=== PATIENT | female | born 1935 | race Caucasian/White ===

== ENCOUNTER 2017-06-26 22:35 | Inpatient (IN) | payer MEDICARE ==
[~2017-06-26] VITALS: Ht 167.6 cm; Wt 60.4 kg
[2017-06-26 22:45] VITALS: BP 124/74; PULSE 73; RESP 16; TEMP 98.5; O2SAT 98
--- NOTE | 2017-06-26 23:09 | PD ---
HPI . Facial trauma Chief Complaint: Fall Time Seen by Provider: 23:01 Travel History International Travel<30 days: No Contact w/Intl Traveler<30days: No Traveled to known affect area: No History of Present Illness HPI Patient was transferred to us from [facility] for left facial fractures. She was accepted in transfer by Dr. Pulido. She reports very little pain at this time. [facility] Past Medical History Medical History: Denies Significant Hx Tetanus Vaccination: < 5 Years Past Surgical History Eye Surgery: Yes Hysterectomy: Yes Social History Alcohol Use: Yes Tobacco Use: No Substance Use: No Allergies-Medications (Allergen,Severity, Reaction): Coded Allergies: No Known Allergies (Unverified , 06/26/17) Review of Systems Except as stated in HPI: all other systems reviewed are Neg HENT: Positive: Other (left facial trauma) Physical Exam Narrative GENERAL: Awake and alert and in no acute distress. SKIN: Warm and dry. She has a couple of her repaired lacerations on the left side of her face. HEAD:. Bruising and swelling to the left cheek EYES: Pupils are equal. Extraocular movements are intact. ENT: Teeth occlude normally. NECK: Normal range of motion. Nontender. CARDIOVASCULAR: Regular rate and rhythm. RESPIRATORY: Nonlabored respirations. MUSCULOSKELETAL: Atraumatic. NEUROLOGICAL: Nonfocal. A and O 3. No cranial nerve deficits noted. Moving all 4 extremities equally. PSYCHIATRIC: Appropriate mood and affect. Data Data Last Documented VS Vital Signs Date Time Temp Pulse Resp B/P (MAP) Pulse Ox O2 Delivery O2 Flow Rate FiO2 06/26/17 22:45 98.5 73 16 124/74 (91) 98 Room Air Orders Orders Ct Facial Bones W/O Iv Cont (06/26/17 23:05) Admit Order (Ed Use Only) (06/26/17 23:05) MDM Medical Decision Making Medical Screen Exam Complete: Yes Emergency Medical Condition: Yes Differential Diagnosis Differential diagnosis of facial trauma includes but is not limited to soft tissue contusion, abrasions, laceration, nasal fracture, orbital fracture, zygomatic fracture Narrative Course This patient presents from an outside hospital for left facial fractures. Physician Communication Physician Communication Dr. Pulido asked that I repeat her facial bone CT. Diagnosis Primary Impression: Facial fracture due to fall Qualified Codes: S02.92XA - Unspecified fracture of facial bones, initial encounter for closed fracture; W19.XXXA - Unspecified fall, initial encounter Admitting Information Admitting Physician Requests: Admit Condition: Stable Shoshana Wiseman MD Jun 26, 2017 23:09
[2017-06-26] MEDS ORDERED: MISCELLANEOUS NURSING INFORMATION XX SCH (23:15)
[2017-06-26] MEDS ORDERED: ONDANSETRON HCL 4 MG/2 ML VIAL IV PUSH PRN (23:15)
[2017-06-26] MEDS ORDERED: CHLORHEXIDINE GLUCONATE 2 % 1 PACK (2 CLOTHS) TOP PRN (23:15)
[2017-06-26] MEDS ORDERED: MORPHINE SULFATE 4 MG/ML INJ IV PUSH PRN (23:15)
[2017-06-26] MEDS: LACTATED RINGER'S 1000 ML INJ 1,000 ML IV SCH (23:33)
--- NOTE | 2017-06-27 00:02 | RADRPT ---
EXAM DATE/TIME: 06/26/2017 23:30 [place] COMPARISON: No previous studies available for comparison. INDICATIONS : Trauma; fall. Left facial swelling. RADIATION DOSE: 36.57 CTDIvol (mGy) MEDICAL HISTORY : None SURGICAL HISTORY : Hysterectomy. ENCOUNTER: Initial ACUITY: 1 day PAIN SCORE: 7/10 LOCATION: facial TECHNIQUE: Volumetric scanning of the facial bones was performed. Using automated exposure control and adjustme nt of the mA and/or kV according to patient size, radiation dose was kept as low as reasonably achiev able to obtain optimal diagnostic quality images. DICOM format image data is available electronicall y for review and comparison. FINDINGS: There are multiple left facial bone fractures with a mildly displaced fracture of the zygomatic arch, longitudinal in orientation, malar fracture at the junction of the maxilla and zygoma, and a displac ed fracture of the inferior lateral maxillary sinus with an internally displaced fragment protruding 5 mm into the maxillary sinus. There is a large air-fluid level in the left maxillary sinus. There is significant soft tissue swelling with multiple collections of subcutaneous gas seen about the left maxillary and zygomatic region. No radiopaque foreign bodies seen. The bony orbit appears grossly intact. Intraorbital contents appear grossly intact. The pterygoid plates appear intact. The mandible and mandibular condyles are intact. No nasal bone fracture seen. No facial bone fractures on the right side. CONCLUSION: Multiple left facial bone fractures involving zygomatic arch, zygoma, and inferolateral wall of the l eft maxillary sinus (internally displaced fragment). There is also significant soft tissue swelling with subcutaneous gas. Robert Mcdonald MD on June 26, 2017 at 23:56 Board Certified Radiologist. This report was verified electronically.
[2017-06-27 00:32] VITALS: BP 130/66; PULSE 70; RESP 17; TEMP 97.1; O2SAT 95
[2017-06-27] MEDS ORDERED: INSULIN HUMAN REGULAR 1,000 UNITS/10 ML VIAL SQ PRN (01:00)
[2017-06-27] MEDS ORDERED: LACTATED RINGER'S 1000 ML IV PRN (01:00)
[2017-06-27] MEDS ORDERED: SODIUM CHLORID 0.9% 500 ML IV PRN (01:00)
[2017-06-27] MEDS ORDERED: METOPROLOL TARTRATE 25 MG TAB PO PRN (01:00)
[2017-06-27] MEDS ORDERED: POVIDONE IODINE 5% (ANTISEPSIS KIT) 4 APPLICATIONS EACH NARE PRN (01:00)
[2017-06-27] MEDS ORDERED: CHLORHEXIDINE GLUCONATE 2 % 1 PACK (2 CLOTHS) TOPICAL PRN (01:00)
--- NOTE | 2017-06-27 02:31 | HHI.HP ---
History of Present Illness Primary Care Physician Unknown Admission Diagnosis facial fractures Diagnoses: History of Present Illness 81 y.o female tripped and fell on her face-transfer from [facility],has left facial fractures,neuro intact,protecting airway,normal vision. Review of Systems Constitutional: DENIES: Diaphoretic episodes, Fatigue, Fever, Weight gain, Weight loss, Chills, Dizziness, Change in appetite, Night Sweats Endocrine: DENIES: Abnorml menstrual pattern, Heat/cold intolerance, Polydipsia , Polyuria, Polyphagia Eyes: DENIES: Blurred vision, Diplopia, Eye inflammation, Eye pain, Vision loss , Photosensitivity, Double Vision Ears, nose, mouth, throat: DENIES: Tinnitus, Hearing loss, Vertigo, Nasal discharge, Oral lesions, Throat pain, Hoarseness, Ear Pain, Running Nose, Epistaxis, Sinus Pain, Toothache, Odynophagia Respiratory: DENIES: Apneas, Cough, Snoring, Wheezing, Hemoptysis, Sputum production, Shortness of breath Cardiovascular: DENIES: Chest pain, Palpitations, Syncope, Dyspnea on Exertion , PND, Lower Extremity Edema, Orthopnea, Claudication Gastrointestinal: DENIES: Abdominal pain, Black stools, Bloody stools, Constipation, Diarrhea, Nausea, Vomiting, Difficulty Swallowing, Anorexia Genitourinary: DENIES: Abnormal vaginal bleeding, Dysmenorrhea, Dyspareunia, Sexual dysfunction, Urinary frequency, Urinary incontinence, Urgency, Hematuria , Dysuria, Nocturia, Vaginal discharge Musculoskeletal: DENIES: Joint pain, Muscle aches, Stiffness, Joint Swelling, Back pain, Neck pain Integumentary: DENIES: Abnormal pigmentation, Pruritus, Rash, Nail changes, Breast masses, Breast skin changes, Nipple discharge Hematologic/lymphatic: DENIES: Bruising, Lymphadenopathy Immunologic/allergic: DENIES: Eczema, Urticaria Neurologic: DENIES: Abnormal gait, Headache, Localized weakness, Paresthesias, Seizures, Speech Problems, Tremor, Poor Balance Psychiatric: DENIES: Anxiety, Confusion, Mood changes, Depression, Hallucinations, Agitation, Suicidal Ideation, Homicidal Ideation, Delusions Past Family Social History Allergies: Coded Allergies: No Known Allergies (Unverified , 06/26/17) Past Medical History none Past Surgical History none Reported Medications none Family History none Social History no etoh Physical Exam Vital Signs Vital Signs Date Time Temp Pulse Resp B/P (MAP) Pulse Ox O2 Delivery O2 Flow Rate FiO2 06/27/17 00:32 97.1 70 17 130/66 (87) 95 06/27/17 00:30 06/26/17 22:45 98.5 73 16 124/74 (91) 98 Room Air Physical Exam GENERAL: This is a well-nourished, well-developed patient, in no apparent distress. SKIN: . Cool and dry. HEAD: Atraumatic. Normocephalic. No temporal or scalp tenderness.left face zygomatic area swelling EYES: Pupils equal round and reactive. Extraocular motions intact. ENT: Nose without bleeding,. Airway patent. NECK: Trachea midline. No JVD Supple, nontender CARDIOVASCULAR: Regular rate and rhythm without murmurs, gallops, or rubs. RESPIRATORY: Clear to auscultation. Breath sounds equal bilaterally. No wheezes , rales, or rhonchi. GASTROINTESTINAL: Abdomen soft, non-tender, nondistended. No guarding. MUSCULOSKELETAL: Extremities without clubbing, cyanosis, or edema. No joint tenderness, effusion, or edema noted. No calf tenderness. NEUROLOGICAL: Awake and alert. Cranial nerves II through XII intact. Motor and sensory grossly within normal limits. Five out of 5 muscle strength in all muscle groups. Normal speech. Imaging Last [address] 06/26/17 3486 Signed Impressions: Service Date/Time: Monday, June 26, 2017 23:30 - CONCLUSION: Multiple left facial bone fractures involving zygomatic arch, zygoma, and inferolateral wall of the left maxillary sinus (internally displaced fragment). There is also significant soft tissue swelling with subcutaneous gas. Robert Mcdonald MD Caprini VTE Risk Assessment Caprini VTE Risk Assessment: Mod/High Risk (score >= 2) VTE Pharm Contraindication: Postop bleeding Caprini Risk Assessment Model Point Value = 1 Point Value = 2 Point Value = 3 Point Value = 5 Age 41-60 Minor surgery BMI > 25 kg/m2 Swollen legs Varicose veins or History of unexplained or recurrent spontaneous Oral contraceptives or hormone replacement Sepsis (< 1 month) Serious lung disease, including pneumonia (< 1 month) Abnormal pulmonary function Acute myocardial infarction Congestive heart failure (< 1 month) History of inflammatory bowel disease Medical patient at bed rest Age 61-74 Arthroscopic surgery Major open surgery (> 45 min) Laparoscopic surgery (> 45 min) Malignancy Confined to bed (> 72 hours) Immobilizing plaster cast Central venous access Age >= 75 History of VTE Family history of VTE Factor V Leiden Prothrombin [id number] Lupus anticoagulant Anticardiolipin antibodies Elevated serum homocysteine Heparin-induced thrombocytopenia Other congenital or acquired thrombophilia Stroke (< 1 month) Elective arthroplasty Hip, pelvis, or leg fracture Acute spinal cord injury (< 1 month) Prophylaxis Regimen Total Risk Factor Score Risk Level Prophylaxis Regimen 0-1 Low Early ambulation 2 Moderate Order ONE of the following: *Sequential Compression Device (SCD) *Heparin 5000 units SQ BID 3-4 Higher Order ONE of the following medications: *Heparin 5000 units SQ TID *Enoxaparin/Lovenox 40 mg SQ daily (WT < 150 kg, CrCl > 30 mL/min) *Enoxaparin/Lovenox 30 mg SQ daily (WT < 150 kg, CrCl > 10-29 mL/min) *Enoxaparin/Lovenox 30 mg SQ BID (WT < 150 kg, CrCl > 30 mL/min) AND/OR *Sequential Compression Device (SCD) 5 or more Highest Order ONE of the following medications: *Heparin 5000 units SQ TID (Preferred with Epidurals) *Enoxaparin/Lovenox 40 mg SQ daily (WT < 150 kg, CrCl > 30 mL/min) *Enoxaparin/Lovenox 30 mg SQ daily (WT < 150 kg, CrCl > 10-29 mL/min) *Enoxaparin/Lovenox 30 mg SQ BID (WT < 150 kg, CrCl > 30 mL/min) AND *Sequential Compression Device (SCD) Assessment and Plan Assessment and Plan left zygoma,maxillary sinus fx,zygomatic arch fx admit medsurg pain control OMFS consult in Eli Arellano MD Jun 27, 2017 02:31
[2017-06-27 03:09] VITALS: BP 102/54; PULSE 69; RESP 17; TEMP 97; O2SAT 98
[2017-06-27] MEDS ORDERED: CHLORHEXIDINE GLUCONATE 2 % 1 PACK (2 CLOTHS) TOP SCH (04:00)
[2017-06-27] MEDS: LACTATED RINGER'S 1000 ML INJ 1,000 ML IV SCH ×2 (06:06→06:25)
[2017-06-27 06:41] LABS: AUTOMATED NEUTROPHIL # 5.9 TH/MM3 (1.8-7.7); BASOPHIL % 0.3 % (0.0-2.0); EOSINOPHIL # 0.1 TH/MM3 (0-0.4); EOSINOPHIL % 1.1 % (0.0-4.0); HEMATOCRIT 34.4 % (35.0-46.0); HEMO FLAGS DIFF FINAL; LYMPH % 15.1 % (9.0-44.0); LYMPHOCYTE # 1.2 TH/MM3 (1.0-4.8); MEAN CELL VOLUME 93.3 FL (80.0-100.0); MEAN CORPUSCULAR HEMOGLOBIN 31.7 PG (27.0-34.0); MEAN CORPUSCULAR HGB CONC 33.9 % (32.0-36.0); MONO % 11.1 % (0.0-8.0); NEUT % 72.4 % (16.0-70.0); PLATELET COUNT 208 TH/MM3 (150-450); RED BLOOD COUNT 3.69 MIL/MM3 (4.00-5.30); RED CELL DISTRIBUTION WIDTH 13.5 % (11.6-17.2); WHITE BLOOD COUNT 8.2 TH/MM3 (4.0-11.0)
[2017-06-27 07:03] LABS: BICARBONATE 27.9 MEQ/L (21.0-32.0)
[2017-06-27 07:10] VITALS: O2SAT 98
[2017-06-27 08:00] VITALS: BP 105/59; PULSE 66; RESP 18; TEMP 97.5; O2SAT 98
--- NOTE | 2017-06-27 08:15 | MB ---
cc: LAURYN GREEN D.D.S. DATE OF : 1935 DATE OF CONSULTATION: 06/27/2017 I was asked to evaluate a pleasant 81-year-old female involved in an accident sustaining some facial trauma. She has a nondisplaced fracture of her zygomatic complex and also the anterior wall of the maxillary sinus, both nondisplaced and nonsurgical. The patient has full upper and lower dental implant restorations that are fixed in the maxilla and mandible which are all intact. Pupils are equal, round and reactive to light and accommodation. Extraocular muscles are intact. She has no other signs of orbital floor involvement. The maxilla and mandible are both stable. She requires no surgical intervention from a maxillofacial standpoint. The patient can follow up on an outpatient basis with me if she has any issues or difficulties. VAMSI Serrato/PAUL /7:58 AM /8:02 AM
[2017-06-27 12:00] VITALS: BP 89/51; PULSE 96; RESP 18; TEMP 96.6; O2SAT 98
[2017-06-27] MEDS ORDERED: COLA100C5 PO (12:18)
[2017-06-27] MEDS ORDERED: NORC5TAB PO (12:18)
--- NOTE | 2017-06-27 12:35 | HHI.DS ---
Discharge Summary Admission Date Jun 26, 2017 at 23:07 Discharge Date: Jun 27, 2017 Admitting Diagnosis facial fractures (1) Facial fracture due to fall ICD Codes: S02.92XA - Unspecified fracture of facial bones, initial encounter for closed fracture; W19.XXXA - Unspecified fall, initial encounter Diagnosis: Principal Status: Acute Brief History Mechanical fall out of the shower. CBC/BMP: 06/27/17 0553 06/27/17 0553 Significant Findings Laboratory Tests Test 06/27/17 05:53 Red Blood Count 3.69 MIL/MM3 (4.00-5.30) Hematocrit 34.4 % (35.0-46.0) Neutrophils (%) (Auto) 72.4 % (16.0-70.0) Monocytes (%) (Auto) 11.1 % (0.0-8.0) Random Glucose 72 MG/DL (74-106) Chloride Level 108 MEQ/L (98-107) Estimat Glomerular Filtration Rate 86 ML/MIN (>89) Imaging Last Impressions Maxillofacial CT 06/26/17 0255 Signed Impressions: Service Date/Time: Monday, June 26, 2017 23:30 - CONCLUSION: Multiple left facial bone fractures involving zygomatic arch, zygoma, and inferolateral wall of the left maxillary sinus (internally displaced fragment). There is also significant soft tissue swelling with subcutaneous gas. Robert Mcdonald MD PE at Discharge GENERAL: This is a 81-year-old female OOB sitting in a recliner chair. No distress noted. SKIN: Warm and dry. Swelling noted to left side of face/cheek. Sutures noted in place to left cheek and left chin. RONALD HEAD: Normocephalic. EYES: PERRLA. Slight ecchymosis noted to left eye. ENT: No nasal bleeding or discharge. Mucous membranes pink and moist. NECK: Trachea midline. No JVD. CARDIOVASCULAR: Regular rate and rhythm. RESPIRATORY: No accessory muscle use. Lungs are clear to auscultation. Breath sounds equal bilaterally. No distress or dyspnea. GASTROINTESTINAL: BS + x 4 quads. Abdomen soft, non-tender, nondistended. MUSCULOSKELETAL: Extremities without cyanosis, or edema. + peripheral pulses x 4 extremities. Warm with good capillary refill and sensation. MAEW. NEUROLOGICAL: Awake and alert. Normal speech and pattern. Hospital Course [place]: This is an 81-year-old female who sustained a mechanical fall. She was getting out of the shower and tripped and fell landing on the left side of her face. She was the trauma transfer from [facility]. INJURIES: LEFT facial laceration (sutures) LEFT facial fractures (zygomatic arch, zygoma and LEFT maxillary sinus) Procedures: Consults: OMFS. Case management. The patient is now tolerating a po diet. Eating and drinking well. Pain is being managed well with PO pain medications, and patient is being a provided with a script for pain meds upon discharge. (NO driving while taking narcotic pain medication enforced to patient.) We have recommended to patient to continue with stool softeners while taking narcotic pain medications to prevent constipation. Pt has been participating in PT and OT while admitted at [facility] and has been ambulating with their assistance and independently . No PT needs at home All follow up appointments have been provided and discussed with the patient. It is recommended that the patient keeps all his follow up appointments for continued recovery. Returned to PCP in 5 days for suture removal from left cheek and left chin. Patient's condition and plan of care discussed with collaborating trauma surgeon. He is agreeable to plan for discharge today. Therefore, the patient is stable to be safely discharged home from a trauma surgery standpoint. Thank you for allowing us to participate in her care. We wish Loretta the best in her recovery. LEFT facial laceration (sutures) LEFT facial fractures (zygomatic arch, zygoma and LEFT maxillary sinus) OMFS consulted and assisting in management and care Nonoperative at this time Pain management Follow PCP for suture removal in approximately 5 days Follow up with OMFS outpatient. Pt Condition on Discharge: Stable Discharge Disposition: Discharge Home Discharge Instructions DIET: Follow Instructions for: Heart Healthy Diet Activities you can perform: Regular-No Restrictions Activities to Avoid: Driving for 24 hrs, Concussion Sports, Contact Sports, Lifting/Bending, Strenuous Activity Remarks Seen and examined with the nurse practitioner, she is stable from general trauma standpoint, facial fractures are nonsurgical according to OMFS, discharge with OMFS follow-up Liberty Juárez Jun 27, 2017 12:35 Eli Pulido MD Jun 27, 2017 16:31
[2017-06-27] MEDS ORDERED: WALKER WHEELS/F1 MIS (12:58)
[2017-06-27 13:00] VITALS: BP 108/58; PULSE 80; RESP 18; TEMP 97.6; O2SAT 99
--- NOTE | 2017-06-27 17:44 | EKG ---
Date Performed: 06/27/2017 Time Performed: 07:03:24 PTAGE: 81 years EKG: Sinus rhythm NORMAL ECG NO PREVIOUS TRACING DOCTOR: Juan Antonio Wiggins Interpretating Date/Time 06/27/2017 17:43:01
== END 2017-06-27 17:26 | disposition home health service (06) | DRG 158 ==
LOC: NEPE 22:35 → NEDA 23:07 → N06A 06-27 00:30
PROVIDERS: ADMIT Surgery Trauma Surgery; ATTEND Surgery Trauma Surgery
DX: S02.40FA Zygomatic fracture, left side, initial encounter for closed fracture (principal); S02.19XA Other fracture of base of skull, initial encounter for closed fracture; S01.81XA Laceration without foreign body of other part of head, initial encounter; Y93.9 Activity, unspecified; W01.0XXA Fall on same level from slipping, tripping and stumbling without subsequent striking against object, initial encounter
CPT/HCPCS: 70486; 80048; 85025; 93005; J7120